=== PATIENT | male | born 1945 ===

== ENCOUNTER 2021-08-11 10:09 | Outpatient (CLI) | payer MEDICARE, OTHER | END 2021-08-11 10:10 | disposition home or self-care (01) | LOC: CSHULT 10:09 | PROVIDERS: ATTEND Physician Assistant Medical | DX: B18.2 Chronic viral hepatitis C (principal); K22.70 Barrett's esophagus without dysplasia; K21.9 Gastro-esophageal reflux disease without esophagitis; Z12.11 Encounter for screening for malignant neoplasm of colon; D64.9 Anemia, unspecified | CPT/HCPCS: 76705 ==

== ENCOUNTER 2022-11-13 08:29 | Outpatient (CLI) | payer OTHER, MEDICAID | END 2022-11-13 08:30 | disposition home or self-care (01) | LOC: CSHULT 08:29 | PROVIDERS: ATTEND Physician Assistant Medical | DX: K74.00 Hepatic fibrosis, unspecified (principal); Z86.19 Personal history of other infectious and parasitic diseases; K22.70 Barrett's esophagus without dysplasia; K80.20 Calculus of gallbladder without cholecystitis without obstruction | CPT/HCPCS: 76705 ==